=== PATIENT | male | born 1990 | race African-American/Black ===

== ENCOUNTER 2017-10-01 16:40 | Emergency (ER) | payer OTHER ==
[~2017-10-01] VITALS: Ht 185.4 cm; Wt 102.0 kg
[2017-10-01 16:44] VITALS: Ht 185.4 cm; Wt 102.0 kg
[2017-10-01 19:11] VITALS: BP 165/86
== END 2017-10-01 19:11 | disposition home or self-care (01) ==
LOC: ED 16:40
DX: S52.501A Unspecified fracture of the lower end of right radius, initial encounter for closed fracture (principal); J45.909 Unspecified asthma, uncomplicated; I10 Essential (primary) hypertension; V00.131A Fall from skateboard, initial encounter; Y93.89 Activity, other specified; Y92.89 Other specified places as the place of occurrence of the external cause; Y99.8 Other external cause status
CPT/HCPCS: J3010